=== PATIENT | male | born 1985 | race Caucasian/White ===

== ENCOUNTER 2017-12-20 13:02 | Emergency (ER) | payer OTHER ==
[~2017-12-20] VITALS: Ht 172.7 cm; Wt 77.1 kg
[2017-12-20 13:07] VITALS: BP 125/81
[2017-12-20] MEDS ORDERED: NACL 0.9% 1,000 ML IV ONE (13:42)
[2017-12-20 14:42] LABS: BASOPHILS # (AUTO) 0.1 K/uL (0.00-0.22); BASOPHILS % (AUTO) 0.9 % (0.0-2.0); EOSINOPHILS # (AUTO) 0.2 K/uL (0-0.4); EOSINOPHILS % (AUTO) 2.6 % (0.0-4.0); HEMATOCRIT 40.6 % (36-52); HEMOGLOBIN 13.4 g/dL (12.0-18.0); LYMPHOCYTES # (AUTO) 1.7 K/uL (2.0-11.5); LYMPHOCYTES % (AUTO) 18.3 % (20.5-51.1); MEAN CORPUSCULAR HEMOGLOBIN 28 pg (27-31); MEAN CORPUSCULAR HGB CONC 33 g/dL (33-37); MEAN CORPUSCULAR VOLUME 85.5 fL (80-94); MONOCYTES # (AUTO) 1.1 K/uL (0.8-1.0); MONOCYTES % (AUTO) 11.2 % (1.7-9.3); NEUTROPHILS # (AUTO) 6.4 K/uL (1.8-7.7); PLATELET COUNT (AUTO) 372 K/uL (140-450); RED BLOOD CELL COUNT(AUTO) 4.75 MIL/uL (4.20-6.10); WHITE BLOOD COUNT (AUTO) 9.5 K/uL (4.8-10.8)
[2017-12-20 14:53] LABS: APPEARANCE,URINE CLEAR (CLEAR); BILIRUBIN,URINE NEGATIVE (NEGATIVE); BLOOD, URINE NEGATIVE (NEGATIVE); COLOR,URINE YELLOW (YELLOW); LEUKOCYTE ESTERASE ,URINE NEGATIVE (NEGATIVE); NITRITE, URINE NEGATIVE (NEGATIVE); UGLUCOSE NEGATIVE (NEGATIVE)
[2017-12-20 15:03] LABS: ANION GAP 8.1 (8-16); CARBON DIOXIDE 30.5 mmol/L (21-32); CHLORIDE 102 mmol/L (98-107); CREATININE 0.7 mg/dL (0.7-1.3); GFR ARICAN-AMERICAN 166 mL/min (>90); GLUCOSE 96 mg/dL (74-106); POTASSIUM 3.6 mmol/L (3.5-5.1); SODIUM SERUM 137 mmol/L (136-145); UREA NITROGEN, BLOOD 9 mg/dL (7-18)
[2017-12-20 15:03] LABS: BARBITURATE, URINE NEG. ng/ml (NEG <=200); BENZODIAZEPINE, URINE NEG. ng/mL (NEG <=200); CANNABINOID, URINE NEG. ng/mL (NEG <=50); COCAINE, URINE NEG. ng/mL (NEG <=300); OPIATE, URINE POS. ng/mL (NEG <=2000); PHENCYCLIDINE SCREEN,URINE NEG. ng/mL (NEG <=25)
[2017-12-20 15:08] LABS: ALBUMIN 3.7 g/dL (3.4-5.0); ASPARTATE AMINOTRANSFERASE 98 U/L (15-37); TOTAL BILIRUBIN 0.4 mg/dL (0.0-1.0)
[2017-12-20 15:09] LABS: RBC,URINE 0-5 (RARE) /HPF (0-5); WBC,URINE 0-5 (RARE) /HPF (0-5)
[2017-12-20 15:11] LABS: SALICYLATE < 2.8 mg/dL (2.8-20.0)
[2017-12-20 16:45] VITALS: BP 130/68
== END 2017-12-20 16:46 | disposition home or self-care (01) ==
LOC: MED 13:02
DX: F11.10 Opioid abuse, uncomplicated (principal)
CPT/HCPCS: 36415; 71045; 80053; 80305; 81001; 84484; 85025; 99285; G0480; G0482; Q0092

== ENCOUNTER 2020-07-13 08:41 | Emergency (ER) | payer OTHER, SELFPAY ==
[~2020-07-13] VITALS: Ht 182.9 cm; Wt 113.4 kg
--- NOTE | 2020-07-13 08:45 | NUR ---
Patient wheelchaired by EMS to bed 9.
--- NOTE | 2020-07-13 08:45 | NUR ---
34 y/o M BIBA with c/c seizures. Per EMS, patient states patient had a seizure last night and this morning prior to arrival; witnessed lasting 1 minute in duration. Pt presented with urinary incontinence and with oral trauma, bleeding controlled prior to arrival. EMS blood glucose 97. Pt presents A&Ox3, cooperative and states he "is tired and does not remember the incident." Denies head/neck/back pain, N/V, SOB, CP. Patient states he uses 1 gram of Fetanyl daily and recently used meth of unknown amount. Pt placed onto cardiac surgeon. Bed locked in lowest position, seizure precautions in place. PMH: DM Meds: Unable to obtain NKA
[2020-07-13 08:46] VITALS: BP 147/101
[2020-07-13] MEDS ORDERED: NACL 0.9% 1,000 ML IV ONE (08:50)
--- NOTE | 2020-07-13 08:50 | NUR ---
Lab at bedside
--- NOTE | 2020-07-13 08:55 | NUR ---
EMT at bedside for EKG.
[2020-07-13 09:11] LABS: BASOPHILS % (AUTO) 0.7 % (0.0-2.0); EOSINOPHILS # (AUTO) 0.1 K/uL (0-0.4); EOSINOPHILS % (AUTO) 1.3 % (0.0-4.0); HEMATOCRIT 40.5 % (36-52); HEMOGLOBIN 13.8 g/dL (12.0-18.0); LYMPHOCYTES # (AUTO) 1.3 K/uL (2.0-11.5); MEAN CORPUSCULAR HEMOGLOBIN 29 pg (27-31); MEAN CORPUSCULAR HGB CONC 34 g/dL (33-37); MEAN CORPUSCULAR VOLUME 86.3 fL (80-94); MONOCYTES # (AUTO) 0.6 K/uL (0.8-1.0); MONOCYTES % (AUTO) 8.5 % (1.7-9.3); NEUTROPHILS # (AUTO) 5.3 K/uL (1.8-7.7); NEUTROPHILS % (AUTO) 71.5 % (42.2-75.2); PLATELET COUNT (AUTO) 373 K/uL (140-450); RED CELL DISTRIBUTION WIDTH 13.1 % (11.6-13.7); WHITE BLOOD COUNT (AUTO) 7.5 K/uL (4.8-10.8)
[2020-07-13 09:25] LABS: CREATININE 0.8 mg/dL (0.6-1.3)
--- NOTE | 2020-07-13 09:25 | NUR ---
Patient voided into urinal for urine sample collection. Walked to lab, handed to iraida Hendrix tech.
--- NOTE | 2020-07-13 09:30 | NUR ---
Patient presents with both eyes open in position of comfort. equipment monitor phototypesetting remains in place. Respirations even/unlabored. Bed locked in lowest position; seizure precautions in place.
--- NOTE | 2020-07-13 09:35 | NUR ---
Patient experienced tonic/clonic seizure lasting [address] De Leon made aware. SpO2 91%; pt placed onto 4L via N/C Sp02 96% on 4L. Oral suctioning applied no oral trauma from seizure noted. Dr. De Leon and staff at bedside for assistance.
[2020-07-13] MEDS ORDERED: LORazepam 2 MG/ML VIAL ONE ×2 (09:38→09:58)
[2020-07-13] MEDS ORDERED: levETIRAcetam 1,000 MG in NACL 0.9% 100 ML IV ONE (09:45)
[2020-07-13 09:49] LABS: APPEARANCE,URINE CLEAR (CLEAR); BILIRUBIN,URINE NEGATIVE (NEGATIVE); BLOOD, URINE NEGATIVE (NEGATIVE); COLOR,URINE YELLOW (YELLOW); LEUKOCYTE ESTERASE ,URINE NEGATIVE (NEGATIVE); NITRITE, URINE NEGATIVE (NEGATIVE); UGLUCOSE NEGATIVE (NEGATIVE)
[2020-07-13] MEDS ORDERED: levETIRAcetam 100 MG/ML VIAL IV ONE (09:51)
[2020-07-13 09:56] LABS: BARBITURATE, URINE NEGATIVE ng/ml (NEG <=200); BENZODIAZEPINE, URINE NEGATIVE ng/mL (NEG <=200); CANNABINOID, URINE NEGATIVE ng/mL (NEG <=50); COCAINE, URINE NEGATIVE ng/mL (NEG <=300); OPIATE, URINE NEGATIVE ng/mL (NEG <=2000); PHENCYCLIDINE SCREEN,URINE NEGATIVE ng/mL (NEG <=25)
--- NOTE | 2020-07-13 09:58 | NUR ---
Patient experienced tonic/clonic seizure lasting 1 minute in duration. 2mg Ativan IVP ordered. Dr. De Leon is at bedside with staff. Ultrasound at bedside for IV insertion.
--- NOTE | 2020-07-13 10:00 | NUR ---
DR KLEIN AT BEDSIDE ATTEMPTING ULTRASOUND GUIDED IV. PT FLAILING AND GRABBING STAFF AND ATTEMPTING TO HIT STAFF. ORDERS FOR 2MG ATIVAN IVP AND RESTRAINTS RECEIVED. REMAINS AT BEDSIDE.
[2020-07-13] MEDS ORDERED: LORazepam 2 MG/ML VIAL IVP ONE ×2 (10:15)
--- NOTE | 2020-07-13 10:25 | NUR ---
technical clerk transported to CT via gurney in full restraints accompanied by 2 machine tester.
--- NOTE | 2020-07-13 10:35 | NUR ---
Patient returned from CT and placed back onto radiation monitor. 4L via N/C, IVF and infusion continued.
--- NOTE | 2020-07-13 10:40 | NUR ---
Patient presents asleep in semi-fowlers, calm and resting at this time. teletypesetter monitor remains in place; SpO2 98% on 2L via N/C. Respirations even/unlabored. Bed locked in lowest position with seizure precautions in place. Dr. De Leon made aware of patient's presentation and advocate for restraint removal.
--- NOTE | 2020-07-13 10:45 | NUR ---
Patient presents with both eyes closed, calm and quiet at this time. Pt disconnected from BUE/BLE hard restraints and tolerated removal well.
[2020-07-13] MEDS ORDERED: ACYCLOVIR 500 MG in NACL 0.9% 100 ML IV ONE (11:15)
--- NOTE | 2020-07-13 11:20 | NUR ---
Contacted pharmacy for Acyclovir 500mg; tech advised he will bring medication to ER.
[2020-07-13] MEDS ORDERED: ACYCLOVIR 500 MG VIAL IV ONE (11:23)
--- NOTE | 2020-07-13 11:25 | NUR ---
Gokul nieves swab collected, walked to lab by EMT and handed to Ruma aquatic life laborer.
--- NOTE | 2020-07-13 11:58 | NUR ---
Patient to be transferred to [facility]. Is being transferred due to higher level of care. Receiving facility has accepting physician and available space. ER physician has signed transfer form. Patient or responsible alliance party has agreed to transfer and signed form. Patient belongings inventoried and will be sent with patient. Copy of nursing notes, lab reports, EKG, Physicians Orders and X-rays to be sent with patient. Report called to LOWELL Villanueva at receiving facility. [facility] ambulance service has been called for transfer. ETA is [id number].
--- NOTE | 2020-07-13 11:59 | NUR ---
call made to LOWELL Villanueva at [facility]. Report given. All questions answered. [facility] crew at bedside for transport.
[2020-07-13 12:10] VITALS: BP 111/77
== END 2020-07-13 12:10 | disposition short-term general hospital (02) ==
LOC: MED 08:41
DX: I63.9 Cerebral infarction, unspecified (principal); G93.40 Encephalopathy, unspecified; G40.909 Epilepsy, unspecified, not intractable, without status epilepticus; E11.9 Type 2 diabetes mellitus without complications; F12.10 Cannabis abuse, uncomplicated; F15.10 Other stimulant abuse, uncomplicated; Z20.822 Contact with and (suspected) exposure to COVID-19
CPT/HCPCS: 36415; 70450; 71045; 80048; 80305; 81003; 84484; 85025; 87040; 87426; 93005; 96361; 96365; 96367; 96375; 99285; G0482; J0133; J1953; J2060

== ENCOUNTER 2020-10-09 13:47 | Emergency (ER) | payer SELFPAY ==
[~2020-10-09] VITALS: Ht 177.8 cm; Wt 104.3 kg
--- NOTE | 2020-10-09 13:49 | NUR ---
PATIENT BIBA TO BED 4 AT THIS TIME
[2020-10-09 13:51] VITALS: BP 156/86
--- NOTE | 2020-10-09 13:58 | NUR ---
34/M biba with c/o lower back pain. Per EMS patient was [place] a [place] station lying on the ground c/o 10/10 right lower back pain, denies injury or trauma. Admits to smoking fentanyl about 90 minutes ago. States pain is non radiating, denies abdominal pain, nausea, vomiting, dysuria or hematuria. Patient alert and oriented x4, able to answer questions appropriately in full clear sentences.
[2020-10-09] MEDS ORDERED: KETOROLAC 60 MG/2 ML VIAL IM ONE (14:05)
[2020-10-09] MEDS ORDERED: NACL 0.9% 1,000 ML IV ONE (14:55)
--- NOTE | 2020-10-09 15:10 | NUR ---
[facility]
[2020-10-09 15:22] LABS: APPEARANCE,URINE CLEAR (CLEAR); BILIRUBIN,URINE NEGATIVE (NEGATIVE); BLOOD, URINE 1+ (NEGATIVE); COLOR,URINE YELLOW (YELLOW); LEUKOCYTE ESTERASE ,URINE NEGATIVE (NEGATIVE); NITRITE, URINE NEGATIVE (NEGATIVE); UGLUCOSE NEGATIVE (NEGATIVE)
[2020-10-09 16:05] LABS: BASOPHILS # (AUTO) 0.1 K/uL (0.00-0.22); BASOPHILS % (AUTO) 0.9 % (0.0-2.0); EOSINOPHILS # (AUTO) 0.1 K/uL (0-0.4); EOSINOPHILS % (AUTO) 0.9 % (0.0-4.0); HEMATOCRIT 40.7 % (36-52); HEMOGLOBIN 13.4 g/dL (12.0-18.0); LYMPHOCYTES # (AUTO) 1.2 K/uL (2.0-11.5); LYMPHOCYTES % (AUTO) 9.1 % (20.5-51.1); MEAN CORPUSCULAR HEMOGLOBIN 28 pg (27-31); MEAN CORPUSCULAR HGB CONC 33 g/dL (33-37); MEAN CORPUSCULAR VOLUME 86.1 fL (80-94); MONOCYTES # (AUTO) 1.1 K/uL (0.8-1.0); MONOCYTES % (AUTO) 8.6 % (1.7-9.3); NEUTROPHILS # (AUTO) 10.8 K/uL (1.8-7.7); NEUTROPHILS % (AUTO) 80.5 % (42.2-75.2); PLATELET COUNT (AUTO) 428 K/uL (140-450); RED BLOOD CELL COUNT(AUTO) 4.73 MIL/uL (4.20-6.10); RED CELL DISTRIBUTION WIDTH 13.5 % (11.6-13.7); WHITE BLOOD COUNT (AUTO) 13.4 K/uL (4.8-10.8)
[2020-10-09 16:28] LABS: RBC,URINE 11-20 (MOD) /HPF (0-5); WBC,URINE 0-5 /HPF (0-5)
[2020-10-09 16:30] LABS: ANION GAP 7.2 (8-16); CARBON DIOXIDE 32.1 mmol/L (21-32); CREATININE 0.9 mg/dL (0.6-1.3); POTASSIUM 4.3 mmol/L (3.5-5.1); TOTAL BILIRUBIN 0.4 mg/dL (0.0-1.0)
[2020-10-09] MEDS ORDERED: ACET-8386 PO (17:18)
[2020-10-09] MEDS ORDERED: IBUP-2213 PO (17:18)
[2020-10-09 18:03] VITALS: BP 144/98
--- NOTE | 2020-10-09 18:03 | NUR ---
Patient discharged with v/s stable. Written and verbal after care instructions about kidney stones given and explained. Patient alert, oriented and verbalized understanding of instructions. Ambulatory with steady gait. All questions addressed prior to discharge. ID band removed. Patient advised to follow up with PMD. Rx of norco, ibuprofen given. Patient educated on indication of medication including possible reaction and side effects. Opportunity to ask questions provided and answered.
--- NOTE | 2020-10-09 18:03 | NUR ---
Patient given written and verbal discharge instructions and verbalizes understanding. Given copies of tests performed during visit. Patient is awake, alert and oriented. Ambulatory with steady gait. Refuses offer of prison placement. Given list of available shelters in surrounding areas. Pt given food packet and will be picked up by father
== END 2020-10-09 18:03 | disposition home or self-care (01) ==
LOC: MED 13:47
DX: N20.0 Calculus of kidney (principal); R03.0 Elevated blood-pressure reading, without diagnosis of hypertension; M54.5 Low back pain; E11.9 Type 2 diabetes mellitus without complications
CPT/HCPCS: 36415; 74176; 80053; 81001; 83690; 85025; 96360; 96372; 99284; J1885; J7030

== ENCOUNTER 2020-11-09 12:12 | Emergency (ER) | payer MEDICAID ==
[~2020-11-09] VITALS: Ht 177.8 cm; Wt 106.6 kg
[~2020-11-09 12:12] MED LIST: ACET-8386 PO; IBUP-2213 PO
[2020-11-09 12:40] VITALS: BP 151/101
--- NOTE | 2020-11-09 12:40 | NUR ---
Pt ambulated to bed 11.
[2020-11-09] MEDS ORDERED: CEPH-588 PO (12:58)
== END 2020-11-09 13:07 | disposition home or self-care (01) ==
LOC: MED 12:12
DX: L03.113 Cellulitis of right upper limb (principal); L03.114 Cellulitis of left upper limb; E11.9 Type 2 diabetes mellitus without complications; Z79.899 Other long term (current) drug therapy
CPT/HCPCS: 99283

== ENCOUNTER 2021-01-14 13:26 | Emergency (ER) | payer MEDICAID, OTHER ==
[~2021-01-14] VITALS: Ht 175.3 cm; Wt 104.8 kg
[~2021-01-14 13:26] MED LIST changes: +CEPH-588 PO
[2021-01-14 13:28] VITALS: BP 120/86
[2021-01-14] MEDS ORDERED: KEP500 PO (13:54)
[2021-01-14] MEDS ORDERED: NAPR-54 PO (13:54)
[2021-01-14] MEDS ORDERED: CEPH-588 PO (13:54)
[2021-01-14] MEDS ORDERED: KETOROLAC 30 MG/ML VIAL IM ONE (13:55)
[2021-01-14 14:10] VITALS: BP 127/81
--- NOTE | 2021-01-14 14:10 | NUR ---
Patient discharged with v/s stable. Written and verbal after care instructions given and explained. Patient alert, oriented and verbalized understanding of instructions. Ambulatory with steady gait. All questions addressed prior to discharge. ID band removed. Patient advised to follow up with PMD. Rx of KEFLEX, KEPPRA, AND NAPROXEN given. Patient educated on indication of medication including possible reaction and side effects. Opportunity to ask questions provided and answered.
== END 2021-01-14 14:10 | disposition home or self-care (01) ==
LOC: MED 13:26
DX: L03.115 Cellulitis of right lower limb (principal); L03.113 Cellulitis of right upper limb; E11.9 Type 2 diabetes mellitus without complications; Z76.0 Encounter for issue of repeat prescription; Z79.899 Other long term (current) drug therapy
CPT/HCPCS: 96372; 99283; J1885